=== PATIENT | female | born 1980 ===

== ENCOUNTER 2023-10-17 06:13 | Outpatient (REF) | payer OTHER, SELFPAY ==
--- NOTE | ~2023-10-17 | US_ITS ---
EXAMINATION: US EXTREMITY, NONVASCULAR CLINICAL INFORMATION: Localized lump left arm COMPARISON: None available. TECHNIQUE: Real-time ultrasound of the left antecubital fossa region in the area of concern indicated by the patient FINDINGS: Ultrasound of the left antecubital fossa demonstrates no mass, fluid collection or other abnormal finding. There is normal compression of the veins in that region. US/US extremity nonvascular IMPRESSION: No sonographic abnormality. Further decisions can be based on clinical grounds.
== END 2023-10-17 06:14 | disposition home or self-care (01) ==
LOC: HO.UMASIMG 06:13
PROVIDERS: Visit Provider Family Medicine
DX: R63.4 Abnormal weight loss (principal); R22.9 Localized swelling, mass and lump, unspecified; E55.9 Vitamin D deficiency, unspecified
CPT/HCPCS: 76882

== ENCOUNTER 2023-11-16 06:31 | Outpatient (REF) | payer OTHER, SELFPAY ==
--- NOTE | ~2023-11-16 | US_ITS ---
EXAMINATION: US TRIPLEX LOWER EXTREMITY, RIGHT CLINICAL INFORMATION: Right lower limb pain COMPARISON: None available. TECHNIQUE: Color-flow triplex imaging with spectral analysis and compression Doppler were performed on the right lower extremity. FINDINGS: Respiratory variation, normal compression and augmented flow are noted throughout the right lower extremity. The visualized common femoral vein, superficial femoral vein, profunda femoral vein, popliteal vein and midcalf peroneal and posterior tibial venous segments show no evidence of deep venous thrombosis. There is no Contreras's cyst. US/US venous duplex LE RT IMPRESSION: No evidence of deep venous thrombosis involving the right lower extremity. Electronically signed by: Rukhsana Denis MD 11/16/2023 03:46 PM EDT
== END 2023-11-16 06:32 | disposition home or self-care (01) ==
LOC: HO.UMASIMG 06:31
PROVIDERS: Visit Provider Family Medicine
DX: M79.604 Pain in right leg (principal); R63.4 Abnormal weight loss
CPT/HCPCS: 93971

== ENCOUNTER 2023-12-19 13:10 | Outpatient (REF) | payer OTHER, SELFPAY ==
--- NOTE | ~2023-12-19 | US_ITS ---
EXAMINATION: US PELVIS CLINICAL INFORMATION: Fibroid. LMP 11/27/2023. COMPARISON: None available. TECHNIQUE: Ultrasound of the pelvis is performed using both transabdominal and transvaginal transducers along with Doppler. Transvaginal imaging is performed due to inadequate visualization transabdominally. FINDINGS: Anteverted uterus with normal morphology measuring 7.6 x 3 x 4.4 cm. There is a 1.8 x 1.3 x 1.7 cm intramural and partly subserosal fundal mass, and a 0.8 x 0.7 x 0.9 cm intramural and minimally submucosal posterior mid body mass, most suggestive of fibroids. Homogeneous endometrium measuring 0.9 cm in thickness. Ovaries are normal in morphology with preserved flow at the moment of this examination. The right ovary measures 3 x 2.3 x 1.7 cm, 8.5 mL and the left ovary measures 3.9 x 2.3 x 2.7 cm, 14 mL. Simple appearing follicles are noted in both ovaries largest on the left measuring up to 1.8 cm. No adnexal mass. No free fluid. US/US pelvic and transvaginal IMPRESSION: There are 2 uterine lesions most consistent with fibroids. Otherwise, unremarkable examination. Electronically signed by: Nereida Wang MD 12/19/2023 05:40 PM EDT
== END 2023-12-19 13:11 | disposition home or self-care (01) ==
LOC: HO.UMASIMG 13:10
PROVIDERS: Visit Provider Family Medicine
DX: D25.9 Leiomyoma of uterus, unspecified (principal)
CPT/HCPCS: 76830; 76856